=== PATIENT | male | born 1965 | race Caucasian/White ===

== ENCOUNTER 2016-07-31 14:10 | Emergency (ER) | payer BC ==
[~2016-07-31] VITALS: Ht 185.4 cm; Wt 90.7 kg
[2016-07-31 14:15] VITALS: BP_SYST 159
[2016-07-31] MEDS ORDERED: NITROGLYCERIN 1 INCH (GM) OINT. TP ONE (15:45)
[2016-07-31] MEDS ORDERED: ASPIRIN 81 MG TAB.CHEW PO ONE (15:45)
[2016-07-31 16:01] LABS: BASOPHILS % (AUTO) 0.3 % (0.0-2.0); EOSINOPHILS # (AUTO) 0.1 K/uL (0.0-0.4); EOSINOPHILS % (AUTO) 0.8 % (0.0-4.0); HEMATOCRIT 46.1 % (36-54); HEMOGLOBIN 14.9 g/dL (14.0-18.0); LYMPHOCYTES # (AUTO) 1.4 K/uL (1.0-5.5); LYMPHOCYTES % (AUTO) 21.1 % (20.5-51.5); MEAN CORPUSCULAR HEMOGLOBIN 29 pg (27-31); MEAN CORPUSCULAR HGB CONC 32 % (32-36); MEAN CORPUSCULAR VOLUME 90 fL (79.0-98.0); MONOCYTES # (AUTO) 0.5 K/uL (0.0-1.0); NEUTROPHILS # (AUTO) 4.4 K/uL (1.8-7.7); NEUTROPHILS % (AUTO) 70.8 % (40.0-70.0); PLATELET COUNT (AUTO) 138 K/uL (130-430); RED BLOOD CELL COUNT(AUTO) 5.15 MIL/uL (4.2-6.2); RED CELL DISTRIBUTION WIDTH 12.9 % (9.0-15.0); WHITE BLOOD COUNT (AUTO) 6.4 K/uL (4.8-10.8)
[2016-07-31 16:04] LABS: CALCIUM 8.9 mg/dL (8.4-11.0); CREATININE 1.15 mg/dL (0.55-1.30); POTASSIUM 3.8 mmol/L (3.5-5.1)
[2016-07-31 16:06] LABS: PROTHROMBIN TIME 10.8 SECS (9.5-12.5)
[2016-07-31 16:09] LABS: ALBUMIN 3.9 g/dL (3.4-4.8); TOTAL BILIRUBIN 0.4 mg/dL (0.0-1.0); TOTAL PROTEIN, SERUM 8.3 g/dL (6.4-8.3)
[2016-07-31 17:01] LABS: BILIRUBIN,URINE NEGATIVE (NEGATIVE); BLOOD, URINE NEGATIVE (NEGATIVE); CLARITY/URINE CLEAR (CLEAR); COLOR,URINE YELLOW (YELLOW); GLUCOSE,URINE NEGATIVE (NEGATIVE); KETONES,URINE NEGATIVE (NEGATIVE); LEUKOCYTE ESTERASE ,URINE NEGATIVE (NEGATIVE); NITRITE, URINE NEGATIVE (NEGATIVE); PH,URINE 5.5 (5.0-8.0); PROTEIN URINE NEGATIVE (NEGATIVE); UROBILINOGEN,URINE 0.2 (0.2-1.0)
[2016-07-31 18:37] VITALS: BP_SYST 132
== END 2016-07-31 18:37 | disposition home or self-care (01) ==
LOC: SED 14:10
DX: R07.89 Other chest pain (principal)
CPT/HCPCS: 36415; 71010; 80053; 81003; 83880; 84484; 85025; 85610-TC; 93005; 99285